=== PATIENT | female | born 1950 | race Caucasian/White ===

== ENCOUNTER 2017-10-11 06:13 | Day surgery (SDC) | payer OTHER ==
[~2017-10-11] VITALS: Ht 162.6 cm; Wt 68.3 kg
[~2017-10-11 06:13] MED LIST: AMLO10 PO; ATEN50 PO; BISA5EC PO; CHOL10002 PO; HYDCHL25 PO; HYDR1TAB94 PO; IBUP400 PO; LOVA40 PO; MULVITMINF PO; OLME20 PO; SIMV5 PO
[2017-10-11] MEDS ORDERED: NAPR220 PO (06:38)
== END 2017-10-11 09:56 | disposition home or self-care (01) ==
LOC: ORSCSDS 06:13
PROVIDERS: Orthopaedic Surgery
PROC: 0LBJ0ZZ Excision of Right Hip Tendon, Open Approach (ICD-10-PCS; principal; 2017-10-11 07:30)
DX: M76.01 Gluteal tendinitis, right hip (principal); I10 Essential (primary) hypertension; Z79.899 Other long term (current) drug therapy
CPT/HCPCS: J0171; J0690; J1100; J1885; J2250; J2405; J3010; J7120

== ENCOUNTER 2022-02-02 10:07 | Day surgery (SDC) | payer OTHER ==
[~2022-02-02] VITALS: Ht 162.6 cm; Wt 63.8 kg
[~2022-02-02 10:07] MED LIST changes: +NAPR220 PO
[2022-02-02] MEDS ORDERED: CODACE30 (10:25)
[2022-02-02] MEDS ORDERED: LOSA25 (10:26)
== END 2022-02-02 12:35 | disposition home or self-care (01) ==
LOC: ORSCSDS 10:07
PROVIDERS: Internal Medicine Gastroenterology
PROC: 0DJD8ZZ Inspection of Lower Intestinal Tract, Via Natural or Artificial Opening Endoscopic (ICD-10-PCS; principal; 2022-02-02 11:15)
DX: Z12.11 Encounter for screening for malignant neoplasm of colon (principal); Z86.010 Personal history of colon polyps; K57.30 Diverticulosis of large intestine without perforation or abscess without bleeding; I12.9 Hypertensive chronic kidney disease with stage 1 through stage 4 chronic kidney disease, or unspecified chronic kidney disease; N18.31 Chronic kidney disease, stage 3a
CPT/HCPCS: J2704; J7120

== ENCOUNTER 2024-01-29 00:41 | Day surgery (SDC) | payer OTHER ==
[~2024-01-29 00:41] MED LIST changes: +CODACE30; +LOSA25
[2024-01-29] MEDS ORDERED: MethylPREDNISolone Sod Succ 500 MG in Dextrose 5% 50 ML IV SCH (06:00)
[2024-01-29 09:43] VITALS: BP 136/75
[2024-01-29] MEDS ORDERED: ZINC15 PO (10:49)
[2024-01-29] MEDS ORDERED: METHI10 PO (10:49)
[2024-01-29] MEDS ORDERED: OMEP20ER PO (10:49)
== END 2024-01-29 09:50 | disposition home or self-care (01) ==
LOC: ATC 00:41
DX: E05.90 Thyrotoxicosis, unspecified without thyrotoxic crisis or storm (principal); H53.2 Diplopia; H05.20 Unspecified exophthalmos; I10 Essential (primary) hypertension; Z88.2 Allergy status to sulfonamides
CPT/HCPCS: 96365; J2919

== ENCOUNTER 2024-02-04 01:08 | Day surgery (SDC) | payer OTHER ==
[~2024-02-04 01:08] MED LIST changes: +METHI10 PO; +OMEP20ER PO; +ZINC15 PO
[2024-02-04] MEDS ORDERED: MethylPREDNISolone Sod Succ 500 MG in Dextrose 5% 50 ML IV SCH (06:00)
[2024-02-04 10:11] VITALS: BP 148/77
== END 2024-02-04 10:47 | disposition home or self-care (01) ==
LOC: ATC 01:08
DX: H53.2 Diplopia (principal); H05.20 Unspecified exophthalmos; I10 Essential (primary) hypertension; E05.00 Thyrotoxicosis with diffuse goiter without thyrotoxic crisis or storm; I70.0 Atherosclerosis of aorta; R73.9 Hyperglycemia, unspecified; Z88.2 Allergy status to sulfonamides; Z79.899 Other long term (current) drug therapy
CPT/HCPCS: 36415; 82947; 83036; 83520; 84439; 84443; 84481; 96365; J2919

== ENCOUNTER 2024-02-19 01:32 | Day surgery (SDC) | payer OTHER ==
[2024-02-19] MEDS ORDERED: MethylPREDNISolone Sod Succ 250 MG in Dextrose 5% 50 ML IV SCH (07:35)
[2024-02-19 09:13] VITALS: BP 132/71
== END 2024-02-19 09:48 | disposition home or self-care (01) ==
LOC: ATC 01:32
DX: E05.90 Thyrotoxicosis, unspecified without thyrotoxic crisis or storm (principal); H53.2 Diplopia; H05.20 Unspecified exophthalmos; I10 Essential (primary) hypertension; Z79.899 Other long term (current) drug therapy; Z88.2 Allergy status to sulfonamides
CPT/HCPCS: 96365; J2919

== ENCOUNTER 2024-03-04 02:29 | Day surgery (SDC) | payer OTHER ==
[2024-03-04] MEDS ORDERED: MethylPREDNISolone Sod Succ 500 MG in Dextrose 5% 50 ML IV SCH (06:00)
[2024-03-04 08:56] VITALS: BP 124/71
[2024-03-04] MEDS ORDERED: MethylPREDNISolone Sod Succ 250 MG in Dextrose 5% 50 ML IV SCH (09:00)
== END 2024-03-04 09:49 | disposition home or self-care (01) ==
LOC: ATC 02:29
DX: E05.90 Thyrotoxicosis, unspecified without thyrotoxic crisis or storm (principal); H53.2 Diplopia; H05.20 Unspecified exophthalmos; I10 Essential (primary) hypertension; Z88.2 Allergy status to sulfonamides; Z79.899 Other long term (current) drug therapy
CPT/HCPCS: 96365; J2919

== ENCOUNTER → 2025-02-10 | Outpatient (CLI) | payer OTHER ==
[2025-02-11 12:35] LABS: Campylobacter Sp Not Detected (NOT DETECT); E. Coli O157 Not Detected (NOT DETECT); Enteroaggregative E. coli-EAEC Not Detected (NOT DETECT); Enteropathogenic E. coli-EPEC Detected (NOT DETECT); Enterotoxigenic E. coli-ETEC Not Detected (NOT DETECT); Salmonella Sp Not Detected (NOT DETECT); Shiga Toxin-prod E. coli-STEC Not Detected (NOT DETECT); Shigella/Enteroin E. coli-EIEC Not Detected (NOT DETECT); Vibrio Sp Not Detected (NOT DETECT)
== END ==
LOC: LAB SHORT 07:40 → LAB 07:40 → LAB FUT 02-09 07:40
PROVIDERS: Family Medicine
DX: R19.7 Diarrhea, unspecified (principal); R79.9 Abnormal finding of blood chemistry, unspecified
CPT/HCPCS: 87507

== ENCOUNTER 2025-03-17 11:00 | Day surgery (SDC) | payer OTHER ==
[~2025-03-17] VITALS: Ht 162.6 cm; Wt 55.7 kg
[~2025-03-17 11:00] MED LIST changes: +Balanced Salt Epinephrine Irrigation Solution 500 mL IR SCH; +Moxifloxacin HCL 0.5 MG/0.1 ML 0.4MLSYR RIGHTEYE SCH; +Ondansetron 4 MG SoluTab MM PRN; +PHENYLEPHRINE\\TROPICAMIDE\\TETRACAINE OPHTHALMIC DILATING SOLN RIGHTEYE PRN; +Povidone-Iodine 450 DROP/30 ML Solution ONE; +Povidone-Iodine 450 DROP/30 ML Solution RIGHTEYE SCH; +Tetracaine HCl/Pf 0.5% Opth Soln 4 ml ONE
[2025-03-17] MEDS ORDERED: KRILL OIL500 MG PO (11:46)
--- NOTE | 2025-03-17 12:21 | NUR ---
03/17/25 1221 Lani Brito 1217 BP:125/80 HR:68 O2:96% RESP:16
[2025-03-17 12:34] VITALS: BP 119/78
== END 2025-03-17 12:46 | disposition home or self-care (01) ==
LOC: ORSCSDS 11:00
PROVIDERS: Student in an Organized Health Care Education/Training Program
PROC: 08RJ3JZ Replacement of Right Lens with Synthetic Substitute, Percutaneous Approach (ICD-10-PCS; principal; 2025-03-17 12:30)
DX: H25.813 Combined forms of age-related cataract, bilateral (principal); E78.5 Hyperlipidemia, unspecified; I12.9 Hypertensive chronic kidney disease with stage 1 through stage 4 chronic kidney disease, or unspecified chronic kidney disease; N18.9 Chronic kidney disease, unspecified; Z79.899 Other long term (current) drug therapy
CPT/HCPCS: A9270; V2632

== ENCOUNTER 2025-03-24 12:59 | Day surgery (SDC) | payer OTHER ==
[~2025-03-24] VITALS: Ht 162.6 cm; Wt 55.3 kg
[~2025-03-24 12:59] MED LIST changes: +KRILL OIL500 MG PO; +Moxifloxacin HCL 0.5 MG/0.1 ML 0.4MLSYR LEFTEYE SCH; -Moxifloxacin HCL 0.5 MG/0.1 ML 0.4MLSYR RIGHTEYE SCH; +PHENYLEPHRINE\\TROPICAMIDE\\TETRACAINE OPHTHALMIC DILATING SOLN LEFTEYE PRN; -PHENYLEPHRINE\\TROPICAMIDE\\TETRACAINE OPHTHALMIC DILATING SOLN RIGHTEYE PRN; +Povidone-Iodine 450 DROP/30 ML Solution LEFTEYE SCH; -Povidone-Iodine 450 DROP/30 ML Solution RIGHTEYE SCH
--- NOTE | 2025-03-24 13:58 | NUR ---
03/24/25 1358 Georgie Langston VITALS AT 1357 BP: 120/63 P: 74 O2: 94% WITH 9 LITERS OF BLOW BY OXYGEN
[2025-03-24 14:18] VITALS: BP 125/73
--- NOTE | 2025-03-24 14:21 | NUR ---
03/24/[address] AT BEDSIDE
== END 2025-03-24 15:06 | disposition home or self-care (01) ==
LOC: ORSCSDS 12:59
PROVIDERS: Student in an Organized Health Care Education/Training Program
PROC: 08RK3JZ Replacement of Left Lens with Synthetic Substitute, Percutaneous Approach (ICD-10-PCS; principal; 2025-03-24 14:30)
DX: H25.812 Combined forms of age-related cataract, left eye (principal); Z96.1 Presence of intraocular lens; I12.9 Hypertensive chronic kidney disease with stage 1 through stage 4 chronic kidney disease, or unspecified chronic kidney disease; N18.9 Chronic kidney disease, unspecified; E78.5 Hyperlipidemia, unspecified; Z79.899 Other long term (current) drug therapy
CPT/HCPCS: A9270; V2632